=== PATIENT | female | born 1935 | race Caucasian/White ===

== ENCOUNTER 2020-10-21 14:35 | Emergency (ER) | payer OTHER ==
[2020-10-21 14:54] VITALS: BMI 27.4
[2020-10-21 19:24] VITALS: BP 132/76; PULSE 87; TEMP 98
== END 2020-10-21 19:10 | disposition home or self-care (01) ==
LOC: FER 14:35
DX: S09.90XA Unspecified injury of head, initial encounter (principal); W19.XXXA Unspecified fall, initial encounter
CPT/HCPCS: 70450-TC; 72125-TC; 99284-25

== ENCOUNTER 2020-12-31 15:10 | Emergency (ER) | payer OTHER ==
[2020-12-31 15:27] VITALS: BP 152/76; PULSE 82; TEMP 98.8; BMI 27.3
[2020-12-31] MEDS ORDERED: ACETAMINOPHEN 325 MG TABLET (FP) PO ONE (15:45)
[2020-12-31] MEDS ORDERED: ACETAMINOPHEN 325 MG TABLET (FP) ONE (15:46)
== END 2020-12-31 16:26 | disposition home or self-care (01) ==
LOC: FER 15:10
DX: M26.69 Other specified disorders of temporomandibular joint (principal)
CPT/HCPCS: 99283-25

== ENCOUNTER 2021-01-10 15:50 | Emergency (ER) | payer OTHER ==
[2021-01-10] MEDS ORDERED: IBUPROFEN 600 MG TABLET (FP) PO ONE (16:10)
[2021-01-10] MEDS ORDERED: IBUPROFEN 400 MG TABLET (FP) PO ONE (16:35)
[2021-01-10 17:08] VITALS: BP 133/74; PULSE 78; TEMP 98.9; BMI 23.8
== END 2021-01-10 17:28 | disposition home or self-care (01) ==
LOC: FER 15:50
DX: H92.02 Otalgia, left ear (principal); M26.622 Arthralgia of left temporomandibular joint
CPT/HCPCS: 99283-25